=== PATIENT | male | born 1955 | race Caucasian/White ===

== ENCOUNTER 2018-08-30 00:18 | Inpatient (IN) ==
[2018-08-30] MEDS ORDERED: IPRATROPIUM/ALBUTEROL 3 ML AMPUL.NEB NEB ONE ×5 (00:36→02:49)
[2018-08-30] MEDS ORDERED: methylPREDNISolone SOD SUCC 125 MG/2 ML VIAL IV ONE (00:56)
--- NOTE | 2018-08-30 01:01 | Emergency Department Note ---
SOB HPI - General Chief Complaint: Shortness of Breath/Dyspnea Stated Complaint: sob Time Seen by Provider: 08/30/18 00:52 Source: patient Mode of arrival: ambulatory Limitations: no limitations - History of Present Illness Recent complaining of wheezing for the past 2 days he has a history of COPD but has not been using his breathing treatments as he has run out of medications. Patient is a heavy smoker and continues smoking greater than 1 pack of cigarettes a day for more than 40 pack years and has not even attempted to cut back. Temperature is 98.9 the pulse is 110 respiratory rate 24 blood pressure is 181/88 pulse ox is 94% does not have any pain denies chest pain orthopnea - Related Data Home Medications Medication Instructions Recorded Confirmed olmesartan 40 mg tablet 40 mg PO QDAY tab 11/09/14 08/04/18 budesonide-formoterol HFA 160 2 inh INHALATION BID g 11/11/14 08/04/18 mcg-4.5 mcg/actuation aerosol inhaler cholecalciferol (vitamin D3) PO 03/21/17 08/04/18 metformin 500 mg tablet 500 mg PO BID 06/09/18 08/04/18 Previous Rx's Medication Instructions Recorded clobetasol 0.05 % topical ointment 1 applic TOPICAL BID PRN #30 g 10/21/17 folic acid 1 mg tablet See Rx Instructions .ROUTE 08/17/18 .COMPLEX #30 tablet methotrexate sodium 2.5 mg tablet See Rx Instructions .ROUTE 08/17/18 .COMPLEX #40 tablet Allergies Allergy/AdvReac Type Severity Reaction Status Date / Time Penicillins Allergy Severe Anaphylaxis Verified 06/09/18 09:15 (CEFAZOLIN [place]) Review of Systems All systems ED: reviewed and negative except as stated. Respiratory: Reports: as per HPI, shortness of breath, wheezes Past Medical History - Past Medical History PMFSH Narrative: All Active Problems (Last Reviewed 02/02/18 @ 14:53 by Sloane Shrestha CMA) Contusion, chest wall (Acute) Polyarthralgia (Acute) Rash and nonspecific skin eruption (Acute) Hepatitis B core antibody positive (Acute) Rheumatoid nodule (Acute) Encounter for long-term (current) use of other high-risk medications (Acute) History of malignant neoplasm of kidney (Chronic) Status post total knee replacement (Chronic) Cough (Chronic) Osteoarthritis of hip (Chronic) Right shoulder pain (Chronic) Encounter for long-term (current) use of other high-risk medications (Chronic) Rheumatoid arthritis (Acute) Bronchitis (Acute) Status post right knee replacement (Acute) H/O arthroscopic knee surgery (Acute) JASWANT (obstructive sleep apnea) (Chronic) Essential hypertension (Chronic) Cellulitis of arm (Chronic) Olecranon bursitis (Chronic) Erectile dysfunction (Chronic) 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) Smoker (Chronic) Sprain of medial collateral ligament of knee (Chronic) Joint derangement, pelvic region and thigh (Chronic) Shoulder pain, left (Chronic) Left knee pain (Chronic) Osteoarthrosis (Acute) Past Surgical History (Last Reviewed 02/02/18 @ 14:53 by Sloane Shrestha CMA) Status post total knee replacement (Chronic) Status post right knee replacement (Acute) H/O arthroscopic knee surgery (Acute) Family History (Last Reviewed 02/02/18 @ 14:53 by Sloane Shrestha CMA) Unknown Type 2 diabetes mellitus - Social History smoking status: Current every day smoker Physical Exam Limitations: no limitations General appearance: alert Head: atraumatic, normocephalic Eye: Present: normal appearance, PERRL ENT: normal exam, normal oropharynx, mucous membranes moist Neck: Present: normal inspection, full ROM, trachea midline Chest: Present: normal inspection, symmetric chest wall rise. Absent: tenderness Respiratory: Present: wheezes Cardiovascular: Present: regular rate, normal rhythm, tachycardia Abdominal: Present: soft. Absent: distention, tenderness, guarding Extremities: Present: normal inspection, full ROM. Absent: tenderness Back: Present: normal inspection, full ROM. Absent: tenderness Neurological: Present: alert, oriented X3, CN II-XII intact Psychiatric: Present: normal affect, normal mood Course Vital Signs Temperature 98.9 F 08/30/18 00:18 Pulse Rate 110 H 08/30/18 00:18 Respiratory Rate 24 H 08/30/18 00:18 Blood Pressure 181/88 08/30/18 00:18 Pulse Oximetry (%) 94 08/30/18 00:18 Temperature 98.9 F 08/30/18 00:18 Pulse Rate 95 H 08/30/18 03:07 Respiratory Rate 20 08/30/18 03:07 Blood Pressure 148/91 08/30/18 03:01 Pulse Oximetry (%) 95 08/30/18 03:07 Shortness of Breath/Dyspnea - [facility] Narrative Medical decision making narrative: UBC 7100 to hemoglobin 14.6 hematocrit of 44. The venous pH is 7.3 PCO2 venous is 65.8 lactic acid is pending. Patient states his been on BiPAP in the past and does not want to be on any ventilator.His heart rate has come down to 99 at this time his O2 sats are running at 96% respiratory rate 22 before BiPAP. Patient states he is allergic to penicillin but states he has had a cephalosporin in the past he believes , given 1 gm iv. Zithromax 500 mg IV in addition to Rocephin. chest x-ray reveals probable infiltrate behind the heart in the left lower lung chacko. his abg's were repeated pH 7.24 the CO2 is 80 O2 90 lactic acid was 1.4. have repeated another DuoNeb. Patient still says he wants to be on BiPAP and does not want to be on a ventilator.Dr Rock has accepted the patient to pcu. On repeat ABGs CO2 is come down slightly from 80 down to 76 again patient states he wants to be on BiPAP. DNI - Lab Data Result diagrams: 08/30/18 00:50 08/30/18 00:50 Lab Results 08/30/18 08/30/18 08/30/18 Range/Units 00:50 00:50 00:50 WBC 7.1 (4.5-11.0) K/mcL RBC 4.55 (4.50-5.90) M/mcL Hgb 14.6 (13.5-16.5) g/dL Hct 44.3 (41.0-55.0) % MCV 97.3 (80.0-100.0) fL MCH 32.0 (26.0-34.0) pg MCHC 32.9 (31.0-36.0) g/dL RDW 15.1 H (11.5-14.5) % Plt Count 179 (140-440) K/mcL MPV 8.1 (7.4-10.4) fL Gran % 69.3 (38.0-78.0) % Lymph % (Auto) 17.7 (15.5-49.0) % Emmons % (Auto) 7.7 (1.0-12.0) % Eos % (Auto) 4.9 (0.0-7.0) % Baso % (Auto) 0.4 (0.0-2.0) % Gran # 4.9 (1.8-8.0) K/mcL Lymph # (Auto) 1.3 L (1.5-4.8) K/mcL Emmons # (Auto) 0.5 (0.1-0.9) K/mcL Eos # (Auto) 0.4 (0.0-0.7) K/mcL Baso # (Auto) 0 (0.0-0.3) K/mcL ABG Methemoglobin (0.4-1.5) % VBG pH (7.32-7.42) U VBG pCO2 (41.0-51.0) mmHg VBG pO2 (25-40) mmHg VBG HCO3 (24.0-28.0) mmol/L VBG Total CO2 (25.0-29.0) mmol/L VBG O2 Saturation (40.0-70.0) % VBG Base Excess (-2.0-2.0) VBG Lactic Acid (0.5-2.0) mmol/L Carboxyhemoglobin (0.0-1.5) % THgb Total Hemoglobin (13.5-16.5) gm/dL O2 Delivery Level Sodium 136 (133-145) mmol/L Potassium 4.0 (3.3-5.1) mmol/L Chloride 94 L (96-108) mmol/L Carbon Dioxide 27 (22-30) mmol/L Anion Gap 15.0 (8-16) BUN 12 (8-23) mg/dl Creatinine 0.8 (0.7-1.2) mg/dl GFR Calculation 96 Glucose 262 H (70-105) mg/dL Calcium 8.9 (8.6-10.4) mg/dl Total Bilirubin 0.4 (0.0-1.0) mg/dL AST 30 (0-37) U/l ALT 25 (0-40) U/l Alkaline Phosphatase 110 (39-117) U/L NT-Pro-B Natriuret Pep < 50.0 (0-125) pg/ml Total Protein 7.3 (5.9-8.4) gm/dL Albumin 3.6 (3.2-5.2) gm/dL Globulin 3.7 (2.2-3.7) gm/dL Albumin/Globulin Ratio 1.0 (1.0-2.3) Procalcitonin (<0.10) ng/mL 08/30/18 08/30/18 08/30/18 Range/Units 00:50 00:51 01:25 WBC (4.5-11.0) K/mcL RBC (4.50-5.90) M/mcL Hgb (13.5-16.5) g/dL Hct (41.0-55.0) % MCV (80.0-100.0) fL MCH (26.0-34.0) pg MCHC (31.0-36.0) g/dL RDW (11.5-14.5) % Plt Count (140-440) K/mcL MPV (7.4-10.4) fL Gran % (38.0-78.0) % Lymph % (Auto) (15.5-49.0) % Emmons % (Auto) (1.0-12.0) % Eos % (Auto) (0.0-7.0) % Baso % (Auto) (0.0-2.0) % Gran # (1.8-8.0) K/mcL Lymph # (Auto) (1.5-4.8) K/mcL Emmons # (Auto) (0.1-0.9) K/mcL Eos # (Auto) (0.0-0.7) K/mcL Baso # (Auto) (0.0-0.3) K/mcL ABG Methemoglobin 0.3 L (0.4-1.5) % VBG pH 7.30 L (7.32-7.42) U VBG pCO2 65.8 H* (41.0-51.0) mmHg VBG pO2 61 H (25-40) mmHg VBG HCO3 31.4 H (24.0-28.0) mmol/L VBG Total CO2 33.4 H (25.0-29.0) mmol/L VBG O2 Saturation 84.5 H (40.0-70.0) % VBG Base Excess 2.9 H (-2.0-2.0) VBG Lactic Acid 1.6 (0.5-2.0) mmol/L Carboxyhemoglobin 4.0 H (0.0-1.5) % THgb Total Hemoglobin 14.3 (13.5-16.5) gm/dL O2 Delivery Level Not Reportable Sodium (133-145) mmol/L Potassium (3.3-5.1) mmol/L Chloride (96-108) mmol/L Carbon Dioxide (22-30) mmol/L Anion Gap (8-16) BUN (8-23) mg/dl Creatinine (0.7-1.2) mg/dl GFR Calculation Glucose (70-105) mg/dL Calcium (8.6-10.4) mg/dl Total Bilirubin (0.0-1.0) mg/dL AST (0-37) U/l ALT (0-40) U/l Alkaline Phosphatase (39-117) U/L NT-Pro-B Natriuret Pep (0-125) pg/ml Total Protein (5.9-8.4) gm/dL Albumin (3.2-5.2) gm/dL Globulin (2.2-3.7) gm/dL Albumin/Globulin Ratio (1.0-2.3) Procalcitonin < 0.05 (<0.10) ng/mL Disposition Pt seen by ASSOCIATE DATA SCIENTIST/PA only: No Clinical Impression: COPD exacerbation, Pneumonia Disposition: Xfer As Inpt ([facility]) Condition: Serious Referrals: Lela Murry MD [Primary Care Provider] - Time of Disposition: 03:38
[2018-08-30 01:10] LABS: ABG Methemoglobin 0.3 % (0.4-1.5); Total Hemoglobin 14.3 gm/dL (13.5-16.5); VBG Base Excess 2.9 (-2.0-2.0); VBG HCO3 31.4 mmol/L (24.0-28.0); VBG Oxygen Saturation 84.5 % (40.0-70.0); VBG PCO2 65.8 mmHg (41.0-51.0); VBG PO2 61 mmHg (25-40); VBG Total CO2 33.4 mmol/L (25.0-29.0)
[2018-08-30 01:13] LABS: Basophils # (Auto) 0 K/mcL (0.0-0.3); Basophils % (Auto) 0.4 % (0.0-2.0); Eosinophils # (Auto) 0.4 K/mcL (0.0-0.7); Eosinophils % (Auto) 4.9 % (0.0-7.0); Granulocytes % (Auto) 69.3 % (38.0-78.0); Hematocrit 44.3 % (41.0-55.0); Hemoglobin 14.6 g/dL (13.5-16.5); Lymphocytes # (Auto) 1.3 K/mcL (1.5-4.8); Lymphocytes % (Auto) 17.7 % (15.5-49.0); Mean Cell Volume 97.3 fL (80.0-100.0); Mean Corpuscular HGB Conc 32.9 g/dL (31.0-36.0); Mean Platelet Volume 8.1 fL (7.4-10.4); Monocytes # (Auto) 0.5 K/mcL (0.1-0.9); Monocytes % (Auto) 7.7 % (1.0-12.0); Platelet Count 179 K/mcL (140-440); RBC 4.55 M/mcL (4.50-5.90); Red Cell Distribution Width 15.1 % (11.5-14.5); WBC 7.1 K/mcL (4.5-11.0)
[2018-08-30 01:38] LABS: ALT/SGPT 25 U/l (0-40); AST/SGOT 30 U/l (0-37); Albumin 3.6 gm/dL (3.2-5.2); Alkaline Phosphatase 110 U/L (39-117); Bilirubin,Total 0.4 mg/dL (0.0-1.0); Blood Urea Nitrogen 12 mg/dl (8-23); Calcium 8.9 mg/dl (8.6-10.4); Carbon Dioxide 27 mmol/L (22-30); Chloride 94 mmol/L (96-108); Globulin 3.7 gm/dL (2.2-3.7); Glomerular Filtration Rate 96; Glucose 262 mg/dL (70-105); Sodium 136 mmol/L (133-145)
[2018-08-30] MEDS ORDERED: cefTRIAXone 1 GM in DEXTROSE 5% IN WATER 50 ML IV ONE (01:48)
[2018-08-30] MEDS ORDERED: AZITHROMYCIN 500 MG in DEXTROSE 5% IN WATER 250 ML IV ONE (01:49)
[2018-08-30 01:56] LABS: proBNP < 50.0 pg/ml (0-125)
[2018-08-30] MEDS ORDERED: 0.9 % SODIUM CHLORIDE 1,000 ML IV SCH (03:45)
--- NOTE | 2018-08-30 05:50 | XRay Report ---
CLINICAL INFORMATION: sob COMPARISON: 03/28/2016 plain film and chest CT 04/03/2011 FINDINGS: Heart is normal in size and configuration. Moderate enlargement of the central pulmonary arteries suggests pulmonary hypertension. Mediastinum and pulmonary vessels are unremarkable. A moderate vague interstitial infiltrate has developed in the right lower lobe. Lung volumes elevation is compatible with known COPD. No effusions IMPRESSION: 1. Moderate sized vague right lower lobe infiltrate 2. Moderate COPD - also noted on 04/03/[address] Consider repeat chest CT 3. Enlargement of the central pulmonary arteries suggestive of pulmonary hypertension Interpreted and Authenticated by: Abel Mccarty 08/30/18
[2018-08-30] MEDS ORDERED: LORazepam 2 MG/ML VIAL ONE (08:21)
[2018-08-30] MEDS ORDERED: LORazepam 2 MG/ML VIAL IV ONE (08:42)
--- NOTE | 2018-08-30 09:18 | Internal Med History&Physical ---
Medical - H&P: HPI Patient information: Note initiated : 08/30/18 at 9:15 am Service Date, if different from initiated Date: [] Patient: Alexander Payne a 62 y/o M admitted on 08/30/18 for sob. Chief Complaint: [] History of present illness: Mr. Payne is a 62 year old M Presents the ED with shortness of breath. Most history obtained from chart as patient is currently on BiPAP and was recently given Ativan for agitation and thus difficult to gather accurate history even though he does answer my questions albeit slowly and hard to hear through the BiPAP. Patient has had wheezing shortness of breath for past couple days apparently ran out of his breathing treatments so has not been taking those. His continues to smoke couple packs per day. No reported history of orthopnea. Patient denies chest pain. Evaluation in the ED showed a respiratory acidosis diminished breath sounds and patient was placed on BiPAP for COPD. And chest x-ray showed some infiltrate and thus he was started on antibiotics. His procalcitonin was unremarkable. Last night the ED was understood that he wanted to be DO NOT INTUBATE. Patient was continued on BiPAP and has showed slow but gradual improvement throughout the night. Protecting this morning he states he is okay with intubation if needed as well as CPR. Recent became quite agitated pulled off his mask and thus was given Ativan and then calm down the mask was able to be replaced which at that point when I visited with him. Looking old notes he saw Dr. Pelaez and was diagnosed with obstructive sleep apnea and required BiPAP with IPAP BiPAP pressures of 20 and EPAP of minimum of 12. This was late 2016. Review of Systems: Pertinent positives as above. Denies headache/fever/chills/nausea/vomiting/chest or abdominal pain/diarrhea. Remaining 10 point review of system reviewed negative Medical - H&P: PMH Medical history: Medical History (Last Reviewed 02/02/18 @ 14:53 by Sloane Shrestha CMA) Contusion, chest wall (Acute) Polyarthralgia (Acute) Rash and nonspecific skin eruption (Acute) Hepatitis B core antibody positive (Acute) Rheumatoid nodule (Acute) Encounter for long-term (current) use of other high-risk medications (Acute) History of malignant neoplasm of kidney (Chronic) Cough (Chronic) Osteoarthritis of hip (Chronic) Right shoulder pain (Chronic) Encounter for long-term (current) use of other high-risk medications (Chronic) Rheumatoid arthritis (Acute) Bronchitis (Acute) JASWANT (obstructive sleep apnea) (Chronic) Essential hypertension (Chronic) Cellulitis of arm (Chronic) Olecranon bursitis (Chronic) Erectile dysfunction (Chronic) 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 Social History (Last Updated 06/19/18 @ 11:30 by Samuel Casanova MD) Smokes 2 packs cigarettes per day Denies alcohol use Lives by himself Medical - H&P: Meds Home Medications Medication Instructions Recorded Confirmed Type olmesartan 40 mg tablet 40 mg PO QDAY tab 11/09/14 08/04/18 History budesonide-formoterol HFA 160 2 inh INHALATION BID g 11/11/14 08/04/18 History mcg-4.5 mcg/actuation aerosol inhaler cholecalciferol (vitamin D3) PO 03/21/17 08/04/18 History clobetasol 0.05 % topical ointment 1 applic TOPICAL BID PRN #30 g 10/21/17 08/04/18 Rx metformin 500 mg tablet 500 mg PO BID 06/09/18 08/04/18 History folic acid 1 mg tablet See Rx Instructions .ROUTE 08/17/18 Rx .COMPLEX #30 tablet methotrexate sodium 2.5 mg tablet See Rx Instructions .ROUTE 08/17/18 Rx .COMPLEX #40 tablet Allergies Allergy/AdvReac Type Severity Reaction Status Date / Time Penicillins Allergy Severe Anaphylaxis Verified 06/09/18 09:15 (CEFAZOLIN [place]) Medical - H&P: Exam - Constitutional Vitals: Temp Pulse Resp BP Pulse Ox 98.2 F 89 21 136/75 93 08/30/18 04:21 08/30/18 08:02 08/30/18 08:02 08/30/18 08:02 08/30/18 08:02 Exam: General: Drowsy after sedative medication, No acute Distress, obese Eyes/N/T: EOMI, PEERL, Head/Neck: neck supple, normocephalic atraumatic CV: RRR, No murmurs, normal s1/s2 Pulm: Diminished bilaterally, mild wheezing bilateral Abd: soft, nontender, +BS x4 Ext: no clubbing/cyanosis, 2+ b/l LE edema Neuro: drowsy, no focal deficits, moves all extremities, CN 2-12 grossly intact, symmetrical strength b/l upper/lower, sensations intact b/l upper/lower Skin: warm/dry Medical - H&P: Reslt - Labs CBC & Chem 7: 08/30/18 00:50 08/30/18 00:50 Labs: Short CBC 08/30/18 Range/Units 00:50 WBC 7.1 (4.5-11.0) K/mcL Hgb 14.6 (13.5-16.5) g/dL Hct 44.3 (41.0-55.0) % Plt Count 179 (140-440) K/mcL BMP 08/30/18 00:50 Sodium 136 Potassium 4.0 Chloride 94 L Carbon Dioxide 27 BUN 12 Creatinine 0.8 Glucose 262 H Calcium 8.9 Liver Function 08/30/18 Range/Units 00:50 Total Bilirubin 0.4 (0.0-1.0) mg/dL AST 30 (0-37) U/l ALT 25 (0-40) U/l Alkaline Phosphatase 110 (39-117) U/L Albumin 3.6 (3.2-5.2) gm/dL - ABG Interpretation ABG results: 08/30/18 00:51 ABG Methemoglobin 0.3 L VBG pH 7.30 L VBG pCO2 65.8 H* VBG pO2 61 H VBG HCO3 31.4 H VBG Total CO2 33.4 H VBG O2 Saturation 84.5 H VBG Base Excess 2.9 H - Impressions Chest x-ray with COPD changes and a vague infiltrate right lower lobe Medical - H&P: A/P - Narrative A/P Narrative: A: *Acute on chronic hypoxic/hypercapnic respiratory failure: 2/2 AECOPD -requiring Bipap -slowly improving ABG's *AECOPD (does not wear oxygen at home): ran out of breathing treatments at home *JASWANT: supposed to be on BiPAP at home with IPAP 20 and EPAP 12 minimum per a 2017 sleep study note, but not always compliant *Morbid obesity: *DM: *HTN: home ARB *RA & OA: follows with Dr. Casanova *Hypothyroid: *Tobacco abuse * P: -BiPAP support prn during the day and regularly at night -IS/Acapella/Nebs -Steroids (wean) -f/u ABG -Azithro -Resp viral panel - -nicotine patch -SSI, hold metformin for now -cont MTX -Smoking cessation counseling -ppx: lovenox Full code Medical - H&P: Qual - Stroke Symptom Onset Unknown: No - VTE Deep Vein Thrombosis/Pulmonary Embolism Present on Admission: No
[2018-08-30] MEDS ORDERED: MAGNESIUM SULFATE 2 GM/50 ML BAG IV PRN (09:52)
[2018-08-30] MEDS ORDERED: LACTULOSE 20 GM/30 ML ORAL.SOL PO PRN (09:52)
[2018-08-30] MEDS ORDERED: POLYETHYLENE GLYCOL 3350 17 GM PACKET PO PRN (09:52)
[2018-08-30] MEDS ORDERED: ACETAMINOPHEN 325 MG TABLET PO PRN (09:52)
[2018-08-30] MEDS ORDERED: POTASSIUM CHLORIDE 20 MEQ TABLET PO PRN ×2 (09:52)
[2018-08-30] MEDS ORDERED: POTASSIUM CHLORIDE 40 MEQ in DEXTROSE 5% IN WATER 500 ML IV PRN (09:52)
[2018-08-30] MEDS ORDERED: IPRATROPIUM/ALBUTEROL 3 ML AMPUL.NEB NEB PRN (09:52)
[2018-08-30] MEDS ORDERED: LORazepam 2 MG/ML VIAL IV PRN (09:52)
[2018-08-30] MEDS ORDERED: ONDANSETRON 4 MG/2 ML VIAL IV PRN (09:52)
[2018-08-30] MEDS ORDERED: SENNOSIDES 1 TABLET PO PRN (09:52)
[2018-08-30] MEDS ORDERED: PROCHLORPERAZINE 10 MG/2 ML VIAL IV PRN (09:52)
[2018-08-30] MEDS: BUDESONIDE 0.5 MG/2 ML AMPUL.NEB NEB SCH ×2 (10:10→19:07)
[2018-08-30 10:25] LABS: Alcohol, Blood < 10.0 mg/dL (<10); Alcohol,Blood < 0.010 gm/dl (<0.010)
[2018-08-30] MEDS ORDERED: INSULIN LISPRO 1 UNIT/0.01 ML UNIT SQ SCH (11:30)
[2018-08-30] MEDS: ENOXAPARIN 40 MG/0.4 ML SYRINGE SQ SCH ×2 (11:43→21:31)
[2018-08-30] MEDS: NICOTINE 14 MG PATCH TOPICAL SCH (11:44)
[2018-08-30] MEDS: NICOTINE 21 MG PATCH TOPICAL SCH (11:44)
[2018-08-30] MEDS: IPRATROPIUM/ALBUTEROL 3 ML AMPUL.NEB NEB SCH ×2 (13:11→19:07)
[2018-08-30] MEDS: INSULIN LISPRO 1 UNIT/0.01 ML UNIT SQ SCH ×3 (13:39→21:31)
[2018-08-30 14:10] LABS: Appearance,Urine CLEAR; Bilirubin,Urine NEG (NEG); Color,Urine YELLOW; Culture Indicated,Urine NO; Glucose,Urine (UA) NEGATIVE (NEG); Ketones,Urine NEG (NEG); Leukocyte Esterase,Urine NEG /uL (NEG); Nitrate,Urine NEG (NEG); Protein,Urine NEG (NEG); Specific Gravity,Urine 1.016 (1.000-1.035); Urine Blood NEG mg/dL (<0.03); Urobilinogen,Urine NEG (NEG)
[2018-08-30 14:20] LABS: Amphetamine Screen,Urine SUSPECT POSITIVE (NONDETECTED); Barbiturate Screen,Urine NONE DETECTED (NONDETECTED); Benzodiazepines Screen,Urine NONE DETECTED (NONDETECTED); Cannabinoid Screen,Urine NONE DETECTED (NONDETECTED); Cocaine Screen,Urine NONE DETECTED (NONDETECTED); Opiate Screen,Urine SUSPECT POSITIVE (NONDETECTED); Oxycodone, Urine Screen NONE DETECTED (NONDETECTED); Phencyclidine Screen,Urine NONE DETECTED (NONDETECTED)
[2018-08-30] MEDS: 0.9 % SODIUM CHLORIDE 10 ML SYRINGE IV SCH ×2 (14:47→21:32)
[2018-08-30] MEDS: AZITHROMYCIN 500 MG in DEXTROSE 5% IN WATER 250 ML IV SCH (18:01)
[2018-08-30] MEDS: FAMOTIDINE/PF 20 MG/2 ML VIAL IV SCH (21:09)
[2018-08-30] MEDS: DOCUSATE SODIUM 100 MG CAPSULE PO SCH (21:09)
[2018-08-31] MEDS: IPRATROPIUM/ALBUTEROL 3 ML AMPUL.NEB NEB SCH ×4 (01:48→18:58)
[2018-08-31 05:02] LABS: Basophils # (Auto) 0 K/mcL (0.0-0.3); Basophils % (Auto) 0.2 % (0.0-2.0); Eosinophils # (Auto) 0 K/mcL (0.0-0.7); Eosinophils % (Auto) 0.2 % (0.0-7.0); Granulocytes % (Auto) 78.5 % (38.0-78.0); Hematocrit 42.5 % (41.0-55.0); Hemoglobin 13.8 g/dL (13.5-16.5); Lymphocytes % (Auto) 10.2 % (15.5-49.0); Mean Cell Volume 98.3 fL (80.0-100.0); Mean Corpuscular HGB Conc 32.4 g/dL (31.0-36.0); Mean Platelet Volume 8.1 fL (7.4-10.4); Monocytes # (Auto) 1.1 K/mcL (0.1-0.9); Monocytes % (Auto) 10.9 % (1.0-12.0); Platelet Count 189 K/mcL (140-440); RBC 4.32 M/mcL (4.50-5.90); Red Cell Distribution Width 15.8 % (11.5-14.5); WBC 9.9 K/mcL (4.5-11.0)
[2018-08-31] MEDS: 0.9 % SODIUM CHLORIDE 10 ML SYRINGE IV SCH ×4 (05:34→21:15)
[2018-08-31 05:55] LABS: ALT/SGPT 20 U/l (0-40); AST/SGOT 18 U/l (0-37); Albumin 3.2 gm/dL (3.2-5.2); Albumin/Globulin Ratio 0.9 (1.0-2.3); Alkaline Phosphatase 80 U/L (39-117); Bilirubin,Direct < 0.2 mg/dL (0.0-0.3); Bilirubin,Total 0.4 mg/dL (0.0-1.0); Blood Urea Nitrogen 23 mg/dl (8-23); Calcium 9.2 mg/dl (8.6-10.4); Carbon Dioxide 31 mmol/L (22-30); Chloride 99 mmol/L (96-108); Globulin 3.4 gm/dL (2.2-3.7); Glomerular Filtration Rate 91; Glucose 170 mg/dL (70-105); Lactate Dehydrogenase 203 U/L (94-250); Magnesium 2.1 mg/dL (1.6-2.5); Phosphorous 2.6 mg/dL (2.7-4.5); Sodium 140 mmol/L (133-145); Triglycerides 126 mg/dl (<150); Uric Acid 5.9 mg/dL (2.5-8.0)
[2018-08-31] MEDS: BUDESONIDE 0.5 MG/2 ML AMPUL.NEB NEB SCH ×2 (07:13→19:00)
--- NOTE | 2018-08-31 07:45 | Internal Med Progress Note ---
Medical - PN: Subj Patient information: Note initiated : 08/31/18 at 7:41 am Service Date, if different from initiated Date: [] Patient: Alexander Payne a 62 y/o M admitted on 08/30/18 for sob. Chief Complaint: [] Interval history: Mr. Payne is a 62 year old M Presents the ED with shortness of breath. Most history obtained from chart as patient is currently on BiPAP and was recently given Ativan for agitation and thus difficult to gather accurate history even though he does answer my questions albeit slowly and hard to hear through the BiPAP. Patient has had wheezing shortness of breath for past couple days apparently ran out of his breathing treatments so has not been taking those. His continues to smoke couple packs per day. No reported history of orthopnea. Patient denies chest pain. Evaluation in the ED showed a respiratory acidosis diminished breath sounds and patient was placed on BiPAP for COPD. And chest x-ray showed some infiltrate and thus he was started on antibiotics. His procalcitonin was unremarkable. Last night the ED was understood that he wanted to be DO NOT INTUBATE. Patient was continued on BiPAP and has showed slow but gradual improvement throughout the night. Protecting this morning he states he is okay with intubation if needed as well as CPR. Recent became quite agitated pulled off his mask and thus was given Ativan and then calm down the mask was able to be replaced which at that point when I visited with him. Looking old notes he saw Dr. Pelaez and was diagnosed with obstructive sleep apnea and required BiPAP with IPAP BiPAP pressures of 20 and EPAP of minimum of 12. This was late 2016. 08/31 Alert and sitting up in chair. Feeling better but still short of breath, not as severe as presentation. Cough productive of clear sputum. UDS with amphetamines patient denies any use of the drug. States only uses marijuana. Could be false positive for metformin. Review of Systems: Has mild headache. Denies fever/chills/nausea/vomiting/chest or abdominal pain/diarrhea. Otherwise see above. - Constitutional Vitals: Vital Signs Temp Pulse Resp BP Pulse Ox 99.7 F H 91 H 20 122/91 95 08/31/18 04:00 08/31/18 07:31 08/31/18 07:31 08/31/18 07:01 08/31/18 07:32 Period Temp Pulse Resp BP Sys/King Pulse Ox Last 24 Hr 99.2 F-99.7 F 81-108 16-27 114-157/71-117 86-100 Intake and Output 08/30/18 08/31/18 08/31/18 21:59 05:59 13:59 Intake Total 1610 360 Output Total 1050 Balance 1610 -690 Weight 97.976 kg Intake & Output: Intake & Output 08/30/18 08/31/18 08/31/18 21:59 05:59 13:59 Intake Total 1610 360 Output Total 1050 Balance 1610 -690 Weight 97.976 kg Intake: IV 1250 Zithromax 500 mg In Dextrose 5% 250 in Water 250 ml @ 250 mls/hr IV DAILY [facility] Rx#:[id number] Oral 360 360 Output: Void Amount 1050 Other: Meal Dinner Percent of Meal Consumed 100% Exam: General: Alert and awake, No acute Distress, obese Eyes/N/T: EOMI, , Head/Neck: neck supple, CV: RRR, No murmurs, Pulm: Diminished bilaterally but better aeration than yesterday, wheezing bilateral Abd: soft, nontender, +BS x4 Ext: no clubbing/cyanosis, 1-2+ b/l LE edema Neuro: drowsy, no focal deficits, moves all extremities, Skin: warm/dry Medical - PN: Obj Da - Labs CBC & Chem 7: 08/31/18 03:30 08/31/18 03:30 Labs: Abnormal Lab Results 08/31/18 08/31/18 08/30/18 03:30 03:30 13:26 RBC 4.32 L RDW 15.8 H Gran % 78.5 H Lymph % (Auto) 10.2 L Lymph # (Auto) 1.0 L Merrick # (Auto) 1.1 H ABG Methemoglobin VBG pH VBG pCO2 VBG pO2 VBG HCO3 VBG Total CO2 VBG O2 Saturation VBG Base Excess Carboxyhemoglobin Chloride Carbon Dioxide 31 H Glucose 170 H Hemoglobin A1c Phosphorus 2.6 L Albumin/Globulin Ratio 0.9 L Urine Opiates Screen Suspect positive A Ur Amphetamines Screen Suspect positive A 08/30/18 08/30/18 08/30/18 09:15 00:51 00:50 RBC RDW Gran % Lymph % (Auto) Lymph # (Auto) Merrick # (Auto) ABG Methemoglobin 0.3 L VBG pH 7.30 L VBG pCO2 65.8 H* VBG pO2 61 H VBG HCO3 31.4 H VBG Total CO2 33.4 H VBG O2 Saturation 84.5 H VBG Base Excess 2.9 H Carboxyhemoglobin 4.0 H Chloride 94 L Carbon Dioxide Glucose 262 H Hemoglobin A1c 7.0 H Phosphorus Albumin/Globulin Ratio Urine Opiates Screen Ur Amphetamines Screen 08/30/18 00:50 RBC RDW 15.1 H Gran % Lymph % (Auto) Lymph # (Auto) 1.3 L Merrick # (Auto) ABG Methemoglobin VBG pH VBG pCO2 VBG pO2 VBG HCO3 VBG Total CO2 VBG O2 Saturation VBG Base Excess Carboxyhemoglobin Chloride Carbon Dioxide Glucose Hemoglobin A1c Phosphorus Albumin/Globulin Ratio Urine Opiates Screen Ur Amphetamines Screen Meds: Medications Acetaminophen (Tylenol) 650 mg PO Q6HP PRN PRN Reason: PAIN/FEVER > 101 Albuterol/Ipratropium (Duoneb) 3 ml NEB Q6HRT [facility] Last Admin: 08/31/18 07:13 Dose: 3 ml Documented by: Albuterol/Ipratropium (Duoneb) 3 ml NEB Q4HP PRN PRN Reason: Shortness Of Breath Budesonide (Pulmicort) 0.5 mg NEB Q12 [facility] Last Admin: 08/31/18 07:13 Dose: 0.5 mg Documented by: Diagnostic Test (Pha) (Accu-Chek) 1 each FS ACHS [facility] Last Admin: 08/30/18 21:10 Dose: 1 each Documented by: Docusate Sodium (Colace) 100 mg PO BID [facility] Last Admin: 08/30/18 21:09 Dose: 100 mg Documented by: Enoxaparin Sodium (Lovenox) 40 mg SQ BID [facility] Last Admin: 08/30/18 21:31 Dose: 40 mg Documented by: Famotidine (Pepcid) 20 mg IV Q12 [facility] Last Admin: 08/30/18 21:09 Dose: 20 mg Documented by: Azithromycin 500 mg/ Dextrose 250 mls @ 250 mls/hr IV DAILY [facility]; Protocol Stop: 08/31/18 09:59 Last Infusion: 08/30/18 19:01 Dose: Infused Documented by: Potassium Chloride 40 meq/ (Dextrose) 520 mls @ 130 mls/hr IV UD PRN PRN Reason: Potassium < 3 Magnesium Sulfate (Magnesium Sulfate) 2 gm in 50 mls @ 50 mls/hr IV UD PRN PRN Reason: Magnesium </= 1.6 Insulin Human Lispro (Humalog) 0 unit SQ ACHS [facility]; Protocol Last Admin: 08/30/18 21:31 Dose: 8 units Documented by: Lactulose (Cephulac) 10 gm PO DAILYP PRN PRN Reason: Constipation Lorazepam (Ativan) 0.5 mg IV Q4-6HP PRN PRN Reason: ANXIETY/SEDATION Mupirocin (Bactroban Oint 2%) 1 dose NARES BID [facility] Nicotine (Nicoderm) 14 mg TOPICAL DAILY@1000 [facility] Last Admin: 08/30/18 11:44 Dose: 14 mg Documented by: Nicotine (Nicoderm) 21 mg TOPICAL DAILY@1000 [facility] Last Admin: 08/30/18 11:44 Dose: 21 mg Documented by: Ondansetron HCl (Zofran) 4 mg IV Q4HP PRN PRN Reason: Nausea And Vomiting Polyethylene Glycol (Miralax) 17 gm PO DAILYP PRN PRN Reason: Constipation Potassium Chloride (Kdur) 40 meq PO UD PRN PRN Reason: Potssium is 3-3.5 Potassium Chloride (Kdur) 40 meq PO UD PRN PRN Reason: Potassium < 3 Prochlorperazine (Compazine) 10 mg IV Q6HP PRN PRN Reason: Nausea And Vomiting Senna (Senokot) 2 tab PO HSP PRN PRN Reason: Constipation Sodium Chloride (Saline Flush) 10 ml IV Q8 [facility] Last Admin: 08/31/18 05:34 Dose: 10 ml Documented by: - ABG Interpretation ABG results: 08/30/18 00:51 ABG Methemoglobin 0.3 L VBG pH 7.30 L VBG pCO2 65.8 H* VBG pO2 61 H VBG HCO3 31.4 H VBG Total CO2 33.4 H VBG O2 Saturation 84.5 H VBG Base Excess 2.9 H Medical - PN: A/P - Time Spent With Patient Total time spent is greater than 50% in coordination of care (as documented) at patient's floor/unit and/or counseling patient: - Narrative A/P Narrative: A: *Acute on chronic hypoxic/hypercapnic respiratory failure: 2/2 AECOPD 2/2 Parainfluenza -required Bipap initially, improving ABG's -now on NC @3-4L while awake *AECOPD (does not wear oxygen at home): *Parainfluenza: *JASWANT: supposed to be on BiPAP at home with IPAP 20 and EPAP 12 minimum per a 2017 sleep study note, but not always compliant *Morbid obesity: *UDS with amphetamines: pt denies, could be false positive from metformin *DM: *HTN: home ARB *RA & OA: follows with Dr. Casanova *Hypothyroid: *Tobacco abuse * P: -BiPAP support prn during the day -Routine use of Bipap at night -IS/Acapella/Nebs -Steroids (wean) -Azithro -nicotine patch -SSI, hold metformin for now -Smoking cessation counseling -ppx: lovenox Full code Medical - PN: Qual - Stroke Symptom Onset Unknown: No - VTE Deep Vein Thrombosis/Pulmonary Embolism Present on Admission: No
[2018-08-31] MEDS ORDERED: methylPREDNISolone SOD SUCC 125 MG/2 ML VIAL IV ONE (07:49)
[2018-08-31] MEDS: INSULIN LISPRO 1 UNIT/0.01 ML UNIT SQ SCH ×4 (07:53→21:14)
--- NOTE | 2018-08-31 08:17 | XRay Report ---
HISTORY: Follow-up infiltrate in the right lung FINDINGS: The vague infiltrate seen centrally and inferiorly in the right lung on 08/30/18 has resolved. There may be mild interstitial fibrosis in both lung apices. There is no evidence of a mass, congestive heart failure or pleural effusion. The central hilar vessels are smaller today than they were on 616. The aorta is mildly tortuous. The heart is normal in size and contour. IMPRESSION: Resolved infiltrate Interpreted and Authenticated by: Beck Lopez 08/31/18
[2018-08-31] MEDS: AZITHROMYCIN 500 MG in DEXTROSE 5% IN WATER 250 ML IV SCH (08:50)
[2018-08-31] MEDS: MUPIROCIN OINT 2% 22GM NARES SCH ×2 (08:50→21:13)
[2018-08-31] MEDS: FAMOTIDINE/PF 20 MG/2 ML VIAL IV SCH ×2 (08:51→21:14)
[2018-08-31] MEDS: ENOXAPARIN 40 MG/0.4 ML SYRINGE SQ SCH ×2 (08:51→21:14)
[2018-08-31] MEDS: DOCUSATE SODIUM 100 MG CAPSULE PO SCH ×2 (08:51→21:14)
[2018-08-31] MEDS: NICOTINE 21 MG PATCH TOPICAL SCH (09:01)
[2018-08-31] MEDS: NICOTINE 14 MG PATCH TOPICAL SCH (09:01)
[2018-08-31] MEDS: methylPREDNISolone SOD SUCC 40 MG/ML VIAL IV SCH ×2 (15:06→21:13)
[2018-08-31] MEDS: FOLIC ACID 1 MG TABLET PO SCH (15:06)
[2018-09-01] MEDS: IPRATROPIUM/ALBUTEROL 3 ML AMPUL.NEB NEB SCH ×4 (02:06→19:28)
[2018-09-01] MEDS: methylPREDNISolone SOD SUCC 40 MG/ML VIAL IV SCH ×3 (05:43→21:13)
[2018-09-01] MEDS: 0.9 % SODIUM CHLORIDE 10 ML SYRINGE IV SCH ×3 (05:44→21:13)
[2018-09-01 06:00] LABS: Blood Urea Nitrogen 22 mg/dl (8-23); Calcium 9.4 mg/dl (8.6-10.4); Carbon Dioxide 33 mmol/L (22-30); Chloride 97 mmol/L (96-108); Glomerular Filtration Rate 91; Glucose 178 mg/dL (70-105); Potassium 4.6 mmol/L (3.3-5.1); Sodium 140 mmol/L (133-145)
[2018-09-01] MEDS: BUDESONIDE 0.5 MG/2 ML AMPUL.NEB NEB SCH ×2 (07:11→19:28)
--- NOTE | 2018-09-01 07:19 | Internal Med Progress Note ---
Medical - PN: Subj Patient information: Note initiated : 09/01/18 at 7:16 am Service Date, if different from initiated Date: [] Patient: Alexander Payne a 62 y/o M admitted on 08/30/18 for sob. Chief Complaint: [] Interval history: Mr. Payne is a 62 year old M Presents the ED with shortness of breath. Most history obtained from chart as patient is currently on BiPAP and was recently given Ativan for agitation and thus difficult to gather accurate history even though he does answer my questions albeit slowly and hard to hear through the BiPAP. Patient has had wheezing shortness of breath for past couple days apparently ran out of his breathing treatments so has not been taking those. His continues to smoke couple packs per day. No reported history of orthopnea. Patient denies chest pain. Evaluation in the ED showed a respiratory acidosis diminished breath sounds and patient was placed on BiPAP for COPD. And chest x-ray showed some infiltrate and thus he was started on antibiotics. His procalcitonin was unremarkable. Last night the ED was understood that he wanted to be DO NOT INTUBATE. Patient was continued on BiPAP and has showed slow but gradual improvement throughout the night. Protecting this morning he states he is okay with intubation if needed as well as CPR. Recent became quite agitated pulled off his mask and thus was given Ativan and then calm down the mask was able to be replaced which at that point when I visited with him. Looking old notes he saw Dr. Pelaez and was diagnosed with obstructive sleep apnea and required BiPAP with IPAP BiPAP pressures of 20 and EPAP of minimum of 12. This was late 2016. 08/31 Alert and sitting up in chair. Feeling better but still short of breath, not as severe as presentation. Cough productive of clear sputum. UDS with amphetamines patient denies any use of the drug. States only uses marijuana. Could be false positive for metformin. 09/01 Cough of clear sputum. Does have shortness of breath but he says it has improved quite a bit even from yesterday. However he still on 4 L of nasal cannula oxygen. Was more tolerant with physical therapy today. No other complaints. Review of Systems: Denies fever/chills/nausea/vomiting/chest or abdominal pain/diarrhea. Otherwise see above. - Constitutional Vitals: Vital Signs Temp Pulse Resp BP Pulse Ox 98.4 F 98 H 24 H 145/82 91 09/01/18 00:01 09/01/18 05:57 09/01/18 05:57 09/01/18 05:57 09/01/18 05:57 Period Temp Pulse Resp BP Sys/King Pulse Ox Last 24 Hr 97.7 F-98.4 F 89-108 18-24 127-169/75-116 84-95 Intake and Output 08/31/18 09/01/18 09/01/18 21:59 05:59 13:59 Output Total 1000 1800 Balance -1000 -1800 Weight 97.023 kg Intake & Output: Intake & Output 08/31/18 09/01/18 09/01/18 21:59 05:59 13:59 Output Total 1000 1800 Balance -1000 -1800 Weight 97.023 kg Output: Void Amount 1000 1800 Other: Urine Appearance Clear Urine Color Pale Exam: General: Alert and awake, No acute Distress, obese Eyes/N/T: EOMI, Head/Neck: neck supple, CV: RRR, No murmurs, Pulm: Diminished bilaterally but aeration continues to improve, wheezing bilat eral not as severe Abd: soft, nontender, +BS x4 Ext: no clubbing/cyanosis, 1+ b/l LE edema Neuro: drowsy, no focal deficits, moves all extremities, Skin: warm/dry Medical - PN: Obj Da - Labs CBC & Chem 7: 08/31/18 03:30 09/01/18 03:27 Labs: Abnormal Lab Results 09/01/18 08/31/18 08/31/18 03:27 03:30 03:30 RBC 4.32 L RDW 15.8 H Gran % 78.5 H Lymph % (Auto) 10.2 L Lymph # (Auto) 1.0 L Starr # (Auto) 1.1 H ABG Methemoglobin VBG pH VBG pCO2 VBG pO2 VBG HCO3 VBG Total CO2 VBG O2 Saturation VBG Base Excess Carboxyhemoglobin Chloride Carbon Dioxide 33 H 31 H Glucose 178 H 170 H Hemoglobin A1c Phosphorus 2.6 L Albumin/Globulin Ratio 0.9 L Urine Opiates Screen Ur Amphetamines Screen 08/30/18 08/30/18 08/30/18 13:26 09:15 00:51 RBC RDW Gran % Lymph % (Auto) Lymph # (Auto) Starr # (Auto) ABG Methemoglobin 0.3 L VBG pH 7.30 L VBG pCO2 65.8 H* VBG pO2 61 H VBG HCO3 31.4 H VBG Total CO2 33.4 H VBG O2 Saturation 84.5 H VBG Base Excess 2.9 H Carboxyhemoglobin 4.0 H Chloride Carbon Dioxide Glucose Hemoglobin A1c 7.0 H Phosphorus Albumin/Globulin Ratio Urine Opiates Screen Suspect positive A Ur Amphetamines Screen Suspect positive A 08/30/18 08/30/18 00:50 00:50 RBC RDW 15.1 H Gran % Lymph % (Auto) Lymph # (Auto) 1.3 L Starr # (Auto) ABG Methemoglobin VBG pH VBG pCO2 VBG pO2 VBG HCO3 VBG Total CO2 VBG O2 Saturation VBG Base Excess Carboxyhemoglobin Chloride 94 L Carbon Dioxide Glucose 262 H Hemoglobin A1c Phosphorus Albumin/Globulin Ratio Urine Opiates Screen Ur Amphetamines Screen Meds: Medications Acetaminophen (Tylenol) 650 mg PO Q6HP PRN PRN Reason: PAIN/FEVER > 101 Albuterol/Ipratropium (Duoneb) 3 ml NEB Q6HRT [facility] Last Admin: 09/01/18 07:10 Dose: 3 ml Documented by: Albuterol/Ipratropium (Duoneb) 3 ml NEB Q4HP PRN PRN Reason: Shortness Of Breath Budesonide (Pulmicort) 0.5 mg NEB Q12 [facility] Last Admin: 09/01/18 07:11 Dose: 0.5 mg Documented by: Diagnostic Test (Pha) (Accu-Chek) 1 each FS ACHS [facility] Last Admin: 08/31/18 21:13 Dose: 1 each Documented by: Docusate Sodium (Colace) 100 mg PO BID [facility] Last Admin: 08/31/18 21:14 Dose: 100 mg Documented by: Enoxaparin Sodium (Lovenox) 40 mg SQ BID [facility] Last Admin: 08/31/18 21:14 Dose: 40 mg Documented by: Famotidine (Pepcid) 20 mg IV Q12 [facility] Last Admin: 08/31/18 21:14 Dose: 20 mg Documented by: Folic Acid (Folic Acid) 1 mg PO DAILY [facility] Last Admin: 08/31/18 15:06 Dose: 1 mg Documented by: Potassium Chloride 40 meq/ (Dextrose) 520 mls @ 130 mls/hr IV UD PRN PRN Reason: Potassium < 3 Magnesium Sulfate (Magnesium Sulfate) 2 gm in 50 mls @ 50 mls/hr IV UD PRN PRN Reason: Magnesium </= 1.6 Insulin Human Lispro (Humalog) 0 unit SQ ACHS [facility]; Protocol Last Admin: 08/31/18 21:14 Dose: 8 units Documented by: Lactulose (Cephulac) 10 gm PO DAILYP PRN PRN Reason: Constipation Lorazepam (Ativan) 0.5 mg IV Q4-6HP PRN PRN Reason: ANXIETY/SEDATION Losartan Potassium (Cozaar) 100 mg PO DAILY [facility] Methylprednisolone Sodium Succinate (Solu-Medrol) 40 mg IV Q8 [facility] Last Admin: 09/01/18 05:43 Dose: 40 mg Documented by: Mupirocin (Bactroban Oint 2%) 1 dose NARES BID [facility] Last Admin: 08/31/18 21:13 Dose: 1 dose Documented by: Nicotine (Nicoderm) 14 mg TOPICAL DAILY@1000 [facility] Last Admin: 08/31/18 09:01 Dose: 14 mg Documented by: Nicotine (Nicoderm) 21 mg TOPICAL DAILY@1000 [facility] Last Admin: 08/31/18 09:01 Dose: 21 mg Documented by: Ondansetron HCl (Zofran) 4 mg IV Q4HP PRN PRN Reason: Nausea And Vomiting Polyethylene Glycol (Miralax) 17 gm PO DAILYP PRN PRN Reason: Constipation Potassium Chloride (Kdur) 40 meq PO UD PRN PRN Reason: Potssium is 3-3.5 Potassium Chloride (Kdur) 40 meq PO UD PRN PRN Reason: Potassium < 3 Prochlorperazine (Compazine) 10 mg IV Q6HP PRN PRN Reason: Nausea And Vomiting Senna (Senokot) 2 tab PO HSP PRN PRN Reason: Constipation Sodium Chloride (Saline Flush) 10 ml IV Q8 [facility] Last Admin: 09/01/18 05:44 Dose: 10 ml Documented by: - ABG Interpretation ABG results: 08/30/18 00:51 ABG Methemoglobin 0.3 L VBG pH 7.30 L VBG pCO2 65.8 H* VBG pO2 61 H VBG HCO3 31.4 H VBG Total CO2 33.4 H VBG O2 Saturation 84.5 H VBG Base Excess 2.9 H Medical - PN: A/P - Time Spent With Patient Total time spent is greater than 50% in coordination of care (as documented) at patient's floor/unit and/or counseling patient: - Narrative A/P Narrative: A: *Acute on chronic hypoxic/hypercapnic respiratory failure: 2/2 AECOPD 2/2 Parainfluenza -required Bipap initially -now on NC @3-4L while awake *AECOPD (does not wear oxygen at home): *Parainfluenza: *JASWANT: supposed to be on BiPAP at home with IPAP 20 and EPAP 12 minimum per a 2017 sleep study note, but not always compliant *Morbid obesity: *UDS with amphetamines: pt denies, could be false positive from metformin *DM: A1c 7.0 *HTN: home ARB *RA & OA: follows with Dr. Casanova *Hypothyroid: *Tobacco abuse * P: -BiPAP support prn during the day -Routine use of Bipap at night -IS/Acapella/Nebs -Steroids (wean) -Azithro -nicotine patch -SSI, basal insulin, hold metformin for now -Smoking cessation counseling -ppx: lovenox Full code Medical - PN: Qual - Stroke Symptom Onset Unknown: No - VTE Deep Vein Thrombosis/Pulmonary Embolism Present on Admission: No
[2018-09-01] MEDS ORDERED: INSULIN GLARGINE, HUMAN 1 UNIT/0.01 ML SQ SCH (09:00)
[2018-09-01] MEDS ORDERED: LOSARTAN 50 MG TABLET PO SCH (09:00)
[2018-09-01] MEDS: INSULIN LISPRO 1 UNIT/0.01 ML UNIT SQ SCH ×4 (09:10→20:55)
[2018-09-01] MEDS: FAMOTIDINE/PF 20 MG/2 ML VIAL IV SCH ×2 (09:11→20:11)
[2018-09-01] MEDS: DOCUSATE SODIUM 100 MG CAPSULE PO SCH ×2 (09:11→20:12)
[2018-09-01] MEDS: FOLIC ACID 1 MG TABLET PO SCH (09:11)
[2018-09-01] MEDS: MUPIROCIN OINT 2% 22GM NARES SCH ×3 (09:11→22:28)
[2018-09-01] MEDS: NICOTINE 14 MG PATCH TOPICAL SCH ×2 (09:12→09:30)
[2018-09-01] MEDS: NICOTINE 21 MG PATCH TOPICAL SCH ×2 (09:12→09:30)
[2018-09-01] MEDS: ENOXAPARIN 40 MG/0.4 ML SYRINGE SQ SCH ×2 (09:29→20:11)
[2018-09-01] MEDS ORDERED: MAGNESIUM SULFATE 2 GM/50 ML BAG IV PRN (09:31)
[2018-09-01] MEDS ORDERED: LORazepam 2 MG/ML VIAL IV PRN (09:31)
[2018-09-01] MEDS ORDERED: POTASSIUM CHLORIDE 20 MEQ TABLET PO PRN ×2 (09:31)
[2018-09-01] MEDS ORDERED: PROCHLORPERAZINE 10 MG/2 ML VIAL IV PRN (09:31)
[2018-09-01] MEDS ORDERED: POTASSIUM CHLORIDE 40 MEQ in DEXTROSE 5% IN WATER 500 ML IV PRN (09:31)
[2018-09-01] MEDS ORDERED: ONDANSETRON 4 MG/2 ML VIAL IV PRN (09:31)
[2018-09-01] MEDS ORDERED: ACETAMINOPHEN 325 MG TABLET PO PRN (09:31)
[2018-09-01] MEDS ORDERED: SENNOSIDES 1 TABLET PO PRN (09:31)
[2018-09-01] MEDS ORDERED: POLYETHYLENE GLYCOL 3350 17 GM PACKET PO PRN (09:31)
[2018-09-01] MEDS ORDERED: IPRATROPIUM/ALBUTEROL 3 ML AMPUL.NEB NEB PRN (09:31)
[2018-09-01] MEDS ORDERED: LACTULOSE 20 GM/30 ML ORAL.SOL PO PRN (09:31)
[2018-09-02] MEDS: IPRATROPIUM/ALBUTEROL 3 ML AMPUL.NEB NEB SCH ×4 (01:17→20:36)
[2018-09-02] MEDS: 0.9 % SODIUM CHLORIDE 10 ML SYRINGE IV SCH ×3 (05:39→21:22)
[2018-09-02] MEDS: methylPREDNISolone SOD SUCC 40 MG/ML VIAL IV SCH ×3 (05:39→21:18)
[2018-09-02 05:40] LABS: Blood Urea Nitrogen 22 mg/dl (8-23); Calcium 9.7 mg/dl (8.6-10.4); Carbon Dioxide 31 mmol/L (22-30); Chloride 99 mmol/L (96-108); Glomerular Filtration Rate 96; Glucose 174 mg/dL (70-105); Potassium 4.3 mmol/L (3.3-5.1); Sodium 141 mmol/L (133-145)
--- NOTE | 2018-09-02 06:45 | Internal Med Progress Note ---
Medical - PN: Subj Patient information: Note initiated : 09/02/18 at 6:40 am Service Date, if different from initiated Date: [] Patient: Alexander Payne a 62 y/o M admitted on 08/30/18 for sob. Chief Complaint: [] Interval history: Mr. Payne is a 62 year old M Presents the ED with shortness of breath. Most history obtained from chart as patient is currently on BiPAP and was recently given Ativan for agitation and thus difficult to gather accurate history even though he does answer my questions albeit slowly and hard to hear through the BiPAP. Patient has had wheezing shortness of breath for past couple days apparently ran out of his breathing treatments so has not been taking those. His continues to smoke couple packs per day. No reported history of orthopnea. Patient denies chest pain. Evaluation in the ED showed a respiratory acidosis diminished breath sounds and patient was placed on BiPAP for COPD. And chest x-ray showed some infiltrate and thus he was started on antibiotics. His procalcitonin was unremarkable. Last night the ED was understood that he wanted to be DO NOT INTUBATE. Patient was continued on BiPAP and has showed slow but gradual improvement throughout the night. Protecting this morning he states he is okay with intubation if needed as well as CPR. Recent became quite agitated pulled off his mask and thus was given Ativan and then calm down the mask was able to be replaced which at that point when I visited with him. Looking old notes he saw Dr. Pelaez and was diagnosed with obstructive sleep apnea and required BiPAP with IPAP BiPAP pressures of 20 and EPAP of minimum of 12. This was late 2016. 08/31 Alert and sitting up in chair. Feeling better but still short of breath, not as severe as presentation. Cough productive of clear sputum. UDS with amphetamines patient denies any use of the drug. States only uses marijuana. Could be false positive for metformin. 09/01 Cough of clear sputum. Does have shortness of breath but he says it has improved quite a bit even from yesterday. However he still on 4 L of nasal cannula oxygen. Was more tolerant with physical therapy today. No other complaints. 09/02 Productive cough of clear sputum. Still short of breath he feels is improving even from yesterday. Nurse reports he desats when he exerts himself or falls asleep without his mask on. Review of Systems: Denies fever/chills/nausea/vomiting/chest or abdominal pain/diarrhea. Otherwise see above. - Constitutional Vitals: Vital Signs Temp Pulse Resp BP Pulse Ox 98.2 F 90 20 156/107 92 09/02/18 04:00 09/02/18 04:00 09/02/18 04:00 09/02/18 04:00 09/02/18 04:00 Period Temp Pulse Resp BP Sys/King Pulse Ox Last 24 Hr 97.7 F-98.8 F 84-100 16-28 149-171/96-116 85-94 Intake and Output 09/01/18 09/02/18 09/02/18 21:59 05:59 13:59 Intake Total 980 840 Output Total 1900 1800 Balance -920 -960 Weight 139.706 kg Intake & Output: Intake & Output 09/01/18 09/02/18 09/02/18 21:59 05:59 13:59 Intake Total 980 840 Output Total 1900 1800 Balance -920 -960 Weight 139.706 kg Intake: Oral 980 840 Output: Urine Catheter Amount 800 Void Amount 1900 1000 Other: Meal Dinner Percent of Meal Consumed 100% Urine Appearance Clear Clear Urine Color Bright Yellow Bright Yellow Stool Size Copious Stool Color Brown Stool Consistency Formed Exam: General: Alert and awake, No acute Distress, obese Eyes/N/T: EOMI, Head/Neck: neck supple, CV: RRR, No murmurs, Pulm: Diminished bilaterally, wheezing bilateral slowly improving Abd: soft, nontender, +BS x4 Ext: no clubbing/cyanosis, 1+ b/l LE edema Neuro: drowsy, no focal deficits, moves all extremities, Skin: warm/dry Medical - PN: Obj Da - Labs CBC & Chem 7: 08/31/18 03:30 09/02/18 03:18 Labs: Abnormal Lab Results 09/02/18 09/01/18 08/31/18 03:18 03:27 03:30 RBC RDW Gran % Lymph % (Auto) Lymph # (Auto) Vance # (Auto) Carbon Dioxide 31 H 33 H 31 H Glucose 174 H 178 H 170 H Hemoglobin A1c Phosphorus 2.6 L Albumin/Globulin Ratio 0.9 L Urine Opiates Screen Ur Amphetamines Screen 08/31/18 08/30/18 08/30/18 03:30 13:26 09:15 RBC 4.32 L RDW 15.8 H Gran % 78.5 H Lymph % (Auto) 10.2 L Lymph # (Auto) 1.0 L Vance # (Auto) 1.1 H Carbon Dioxide Glucose Hemoglobin A1c 7.0 H Phosphorus Albumin/Globulin Ratio Urine Opiates Screen Suspect positive A Ur Amphetamines Screen Suspect positive A Meds: Medications Acetaminophen (Tylenol) 650 mg PO Q6HP PRN PRN Reason: PAIN/FEVER > 101 Albuterol/Ipratropium (Duoneb) 3 ml NEB Q4HP PRN PRN Reason: Shortness Of Breath Albuterol/Ipratropium (Duoneb) 3 ml NEB Q6HRT [facility] Last Admin: 09/02/18 01:17 Dose: 3 ml Documented by: Budesonide (Pulmicort) 0.5 mg NEB Q12 [facility] Last Admin: 09/01/18 19:28 Dose: 0.5 mg Documented by: Diagnostic Test (Pha) (Accu-Chek) [address] [facility] Last Admin: 09/01/18 20:54 Dose: 1 each Documented by: Docusate Sodium (Colace) 100 mg PO BID [facility] Last Admin: 09/01/18 20:12 Dose: Not Given Documented by: Enoxaparin Sodium (Lovenox) 40 mg SQ BID [facility] Last Admin: 09/01/18 20:11 Dose: 40 mg Documented by: Famotidine (Pepcid) 20 mg IV Q12 [facility] Last Admin: 09/01/18 20:11 Dose: 20 mg Documented by: Folic Acid (Folic Acid) 1 mg PO DAILY [facility] Potassium Chloride 40 meq/ (Dextrose) 520 mls @ 130 mls/hr IV UD PRN PRN Reason: Potassium < 3 Magnesium Sulfate (Magnesium Sulfate) 2 gm in 50 mls @ 50 mls/hr IV UD PRN PRN Reason: Magnesium </= 1.6 Insulin Glargine (Lantus) 10 unit SQ DAILY [facility] Insulin Human Lispro (Humalog) 0 unit SQ ACHS [facility]; Protocol Last Admin: 09/01/18 20:55 Dose: 6 units Documented by: Lactulose (Cephulac) 10 gm PO DAILYP PRN PRN Reason: Constipation Lorazepam (Ativan) 0.5 mg IV Q4-6HP PRN PRN Reason: ANXIETY/SEDATION Losartan Potassium (Cozaar) 100 mg PO DAILY [facility] Methylprednisolone Sodium Succinate (Solu-Medrol) 40 mg IV Q8 [facility] Last Admin: 09/02/18 05:39 Dose: 40 mg Documented by: Mupirocin (Bactroban Oint 2%) 1 dose NARES BID [facility] Last Admin: 09/01/18 22:28 Dose: 1 dose Documented by: Nicotine (Nicoderm) 14 mg TOPICAL DAILY@1000 [facility] Last Admin: 09/01/18 09:30 Dose: 14 mg Documented by: Nicotine (Nicoderm) 21 mg TOPICAL DAILY@1000 [facility] Last Admin: 09/01/18 09:30 Dose: 21 mg Documented by: Ondansetron HCl (Zofran) 4 mg IV Q4HP PRN PRN Reason: Nausea And Vomiting Polyethylene Glycol (Miralax) 17 gm PO DAILYP PRN PRN Reason: Constipation Potassium Chloride (Kdur) 40 meq PO UD PRN PRN Reason: Potssium is 3-3.5 Potassium Chloride (Kdur) 40 meq PO UD PRN PRN Reason: Potassium < 3 Prochlorperazine (Compazine) 10 mg IV Q6HP PRN PRN Reason: Nausea And Vomiting Senna (Senokot) 2 tab PO HSP PRN PRN Reason: Constipation Sodium Chloride (Saline Flush) 10 ml IV Q8 [facility] Last Admin: 09/02/18 05:39 Dose: 10 ml Documented by: - ABG Interpretation ABG results: 08/30/18 00:51 ABG Methemoglobin 0.3 L VBG pH 7.30 L VBG pCO2 65.8 H* VBG pO2 61 H VBG HCO3 31.4 H VBG Total CO2 33.4 H VBG O2 Saturation 84.5 H VBG Base Excess 2.9 H Medical - PN: A/P - Time Spent With Patient Total time spent is greater than 50% in coordination of care (as documented) at patient's floor/unit and/or counseling patient: - Narrative A/P Narrative: A: *Acute on chronic hypoxic/hypercapnic respiratory failure: 2/2 AECOPD 2/2 Parainfluenza -required Bipap initially -now on NC @3NC @rest and while awake, desats if falls asleep w/o mask or exercise *AECOPD (not on home O2): *Parainfluenza: *JASWANT: supposed to be on BiPAP at home with IPAP 20 and EPAP 12 minimum per a 2017 sleep study note, but not always compliant *Morbid obesity: *UDS with amphetamines: pt denies, could be false positive from metformin *DM: A1c 7.0 *HTN: home ARB *RA & OA: follows with Dr. Casanova *Hypothyroid: *Tobacco abuse * P: -BiPAP support prn during the day -Routine use of Bipap at night -IS/Acapella/Nebs -Steroids (wean) -Azithro -nicotine patch -SSI, basal insulin, hold metformin for now -Smoking cessation counseling -ppx: lovenox Full code Medical - PN: Qual - Stroke Symptom Onset Unknown: No - VTE Deep Vein Thrombosis/Pulmonary Embolism Present on Admission: No
[2018-09-02] MEDS: BUDESONIDE 0.5 MG/2 ML AMPUL.NEB NEB SCH ×2 (07:29→20:36)
[2018-09-02] MEDS: NICOTINE 14 MG PATCH TOPICAL SCH (09:15)
[2018-09-02] MEDS: NICOTINE 21 MG PATCH TOPICAL SCH (09:15)
[2018-09-02] MEDS: ENOXAPARIN 40 MG/0.4 ML SYRINGE SQ SCH ×2 (09:16→21:21)
[2018-09-02] MEDS: INSULIN LISPRO 1 UNIT/0.01 ML UNIT SQ SCH ×4 (09:16→21:19)
[2018-09-02] MEDS: INSULIN GLARGINE, HUMAN 1 UNIT/0.01 ML SQ SCH (09:16)
[2018-09-02] MEDS: FOLIC ACID 1 MG TABLET PO SCH (09:17)
[2018-09-02] MEDS: DOCUSATE SODIUM 100 MG CAPSULE PO SCH ×2 (09:17→21:20)
[2018-09-02] MEDS: LOSARTAN 50 MG TABLET PO SCH (09:17)
[2018-09-02] MEDS: FAMOTIDINE/PF 20 MG/2 ML VIAL IV SCH ×2 (09:17→21:19)
[2018-09-02] MEDS: MUPIROCIN OINT 2% 22GM NARES SCH ×2 (09:18→21:21)
[2018-09-03] MEDS: IPRATROPIUM/ALBUTEROL 3 ML AMPUL.NEB NEB SCH ×2 (00:28→07:19)
[2018-09-03 04:23] LABS: Opiate Confirmation POSITIVE (N)
[2018-09-03] MEDS: methylPREDNISolone SOD SUCC 40 MG/ML VIAL IV SCH (05:16)
[2018-09-03] MEDS: 0.9 % SODIUM CHLORIDE 10 ML SYRINGE IV SCH (05:16)
[2018-09-03] MEDS: BUDESONIDE 0.5 MG/2 ML AMPUL.NEB NEB SCH (07:19)
[2018-09-03] MEDS: INSULIN GLARGINE, HUMAN 1 UNIT/0.01 ML SQ SCH (08:07)
[2018-09-03] MEDS: INSULIN LISPRO 1 UNIT/0.01 ML UNIT SQ SCH ×2 (08:07→12:10)
[2018-09-03] MEDS: LOSARTAN 50 MG TABLET PO SCH (08:07)
[2018-09-03] MEDS: FOLIC ACID 1 MG TABLET PO SCH (08:08)
[2018-09-03] MEDS: DOCUSATE SODIUM 100 MG CAPSULE PO SCH ×2 (08:08→08:14)
[2018-09-03] MEDS: FAMOTIDINE/PF 20 MG/2 ML VIAL IV SCH (08:09)
[2018-09-03] MEDS: ENOXAPARIN 40 MG/0.4 ML SYRINGE SQ SCH (08:14)
[2018-09-03] MEDS: MUPIROCIN OINT 2% 22GM NARES SCH (08:22)
[2018-09-03 09:20] LABS: Basophils # (Auto) 0 K/mcL (0.0-0.3); Basophils % (Auto) 0 % (0.0-2.0); Eosinophils # (Auto) 0 K/mcL (0.0-0.7); Eosinophils % (Auto) 0.1 % (0.0-7.0); Granulocytes % (Auto) 84.1 % (38.0-78.0); Hematocrit 43.6 % (41.0-55.0); Hemoglobin 14.5 g/dL (13.5-16.5); Lymphocytes # (Auto) 1.4 K/mcL (1.5-4.8); Lymphocytes % (Auto) 9.8 % (15.5-49.0); Mean Cell Volume 98.8 fL (80.0-100.0); Mean Corpuscular HGB Conc 33.3 g/dL (31.0-36.0); Mean Platelet Volume 7.9 fL (7.4-10.4); Monocytes # (Auto) 0.9 K/mcL (0.1-0.9); Platelet Count 263 K/mcL (140-440); RBC 4.41 M/mcL (4.50-5.90); Red Cell Distribution Width 15.3 % (11.5-14.5); WBC 14.3 K/mcL (4.5-11.0)
[2018-09-03 09:35] LABS: ALT/SGPT 27 U/l (0-40); AST/SGOT 23 U/l (0-37); Albumin 3.8 gm/dL (3.2-5.2); Albumin/Globulin Ratio 1.2 (1.0-2.3); Alkaline Phosphatase 75 U/L (39-117); Bilirubin,Direct < 0.2 mg/dL (0.0-0.3); Bilirubin,Total 0.6 mg/dL (0.0-1.0); Blood Urea Nitrogen 22 mg/dl (8-23); Calcium 9.6 mg/dl (8.6-10.4); Carbon Dioxide 31 mmol/L (22-30); Chloride 99 mmol/L (96-108); Globulin 3.3 gm/dL (2.2-3.7); Glomerular Filtration Rate 91; Glucose 160 mg/dL (70-105); Lactate Dehydrogenase 246 U/L (94-250); Magnesium 2.2 mg/dL (1.6-2.5); Phosphorous 4.4 mg/dL (2.7-4.5); Potassium 4.5 mmol/L (3.3-5.1); Sodium 140 mmol/L (133-145); Triglycerides 163 mg/dl (<150); Uric Acid 5.9 mg/dL (2.5-8.0)
--- NOTE | 2018-09-03 10:46 | Internal Med Progress Note ---
Medical - PN: Subj Patient information: Note initiated : 09/03/18 at 10:44 am Service Date, if different from initiated Date: [] Patient: Alexander Payne a 62 y/o M admitted on 08/30/18 for sob. Chief Complaint: [] Interval history: Mr. Payne is a 62 year old M Presents the ED with shortness of breath. Most history obtained from chart as patient is currently on BiPAP and was recently given Ativan for agitation and thus difficult to gather accurate history even though he does answer my questions albeit slowly and hard to hear through the BiPAP. Patient has had wheezing shortness of breath for past couple days apparently ran out of his breathing treatments so has not been taking those. His continues to smoke couple packs per day. No reported history of orthopnea. Patient denies chest pain. Evaluation in the ED showed a respiratory acidosis diminished breath sounds and patient was placed on BiPAP for COPD. And chest x-ray showed some infiltrate and thus he was started on antibiotics. His procalcitonin was unremarkable. Last night the ED was understood that he wanted to be DO NOT INTUBATE. Patient was continued on BiPAP and has showed slow but gradual improvement throughout the night. Protecting this morning he states he is okay with intubation if needed as well as CPR. Recent became quite agitated pulled off his mask and thus was given Ativan and then calm down the mask was able to be replaced which at that point when I visited with him. Looking old notes he saw Dr. Pelaez and was diagnosed with obstructive sleep apnea and required BiPAP with IPAP BiPAP pressures of 20 and EPAP of minimum of 12. This was late 2016. 08/31 Alert and sitting up in chair. Feeling better but still short of breath, not as severe as presentation. Cough productive of clear sputum. UDS with amphetamines patient denies any use of the drug. States only uses marijuana. Could be false positive for metformin. 09/01 Cough of clear sputum. Does have shortness of breath but he says it has improved quite a bit even from yesterday. However he still on 4 L of nasal cannula oxygen. Was more tolerant with physical therapy today. No other complaints. 09/02 Productive cough of clear sputum. Still short of breath he feels is improving even from yesterday. Nurse reports he desats when he exerts himself or falls asleep without his mask on. 09/03 Pt seen examined, no acute issues, tolerating po diet well feels breathing is better no wheeze on exam today he wishes to be discharged today, notes that will not stay, even if advised to stay back, Does not have oxygen at home, will set up home oxygen Oxygen saturation on room air is 86%, osat on 4L is 91% - Constitutional Vitals: Vital Signs Temp Pulse Resp BP Pulse Ox 98.7 F 104 H 18 160/98 90 09/02/18 23:08 09/03/18 08:00 09/03/18 07:22 09/03/18 08:00 09/03/18 08:00 Period Temp Pulse Resp BP Sys/King Pulse Ox Last 24 Hr 97.2 F-98.7 F 86-104 18-25 128-170/71-108 88-95 Intake and Output 09/02/18 09/03/18 09/03/18 21:59 05:59 13:59 Intake Total 420 Output Total 550 1875 1050 Balance -130 -1875 -1050 Weight 304 lb 8 oz Intake & Output: Intake & Output 09/02/18 09/03/18 09/03/18 21:59 05:59 13:59 Intake Total 420 Output Total 550 1875 1050 Balance -130 -1875 -1050 Weight 304 lb 8 oz Intake: Oral 420 Output: Void Amount 550 1875 1050 Other: Meal Dinner Breakfast Percent of Meal Consumed 100% 100% Feeding Ability Assist with Tray Set Up Independent Urine Appearance Clear Clear Clear Urine Color Bright Yellow Pale Pale Urine Odor Normal Stool Size Large Stool Color Brown Stool Consistency Formed # Voids 1 # Bowel Movements 1 Medical - PN: Obj Da - Labs CBC & Chem 7: 09/03/18 08:07 09/03/18 08:07 Labs: Abnormal Lab Results 09/03/18 09/03/18 09/02/18 08:07 08:07 03:18 WBC 14.3 H RBC 4.41 L RDW 15.3 H Gran % 84.1 H Lymph % (Auto) 9.8 L Gran # 12.0 H Lymph # (Auto) 1.4 L Carbon Dioxide 31 H 31 H Glucose 160 H 174 H Triglycerides 163 H 09/01/18 03:27 WBC RBC RDW Gran % Lymph % (Auto) Gran # Lymph # (Auto) Carbon Dioxide 33 H Glucose 178 H Triglycerides Meds: Medications Acetaminophen (Tylenol) 650 mg PO Q6HP PRN PRN Reason: PAIN/FEVER > 101 Albuterol/Ipratropium (Duoneb) 3 ml NEB Q4HP PRN PRN Reason: Shortness Of Breath Albuterol/Ipratropium (Duoneb) 3 ml NEB Q6HRT [facility] Last Admin: 09/03/18 07:19 Dose: 3 ml Documented by: Budesonide (Pulmicort) 0.5 mg NEB Q12 [facility] Last Admin: 09/03/18 07:19 Dose: 0.5 mg Documented by: Diagnostic Test (Pha) (Accu-Chek) 1 each FS ACHS [facility] Last Admin: 09/03/18 08:06 Dose: 1 each Documented by: Docusate Sodium (Colace) 100 mg PO BID [facility] Last Admin: 09/03/18 08:14 Dose: Not Given Documented by: Enoxaparin Sodium (Lovenox) 40 mg SQ BID [facility] Last Admin: 09/03/18 08:14 Dose: 40 mg Documented by: Famotidine (Pepcid) 20 mg IV Q12 [facility] Last Admin: 09/03/18 08:09 Dose: 20 mg Documented by: Folic Acid (Folic Acid) 1 mg PO DAILY [facility] Last Admin: 09/03/18 08:08 Dose: 1 mg Documented by: Potassium Chloride 40 meq/ (Dextrose) 520 mls @ 130 mls/hr IV UD PRN PRN Reason: Potassium < 3 Magnesium Sulfate (Magnesium Sulfate) 2 gm in 50 mls @ 50 mls/hr IV UD PRN PRN Reason: Magnesium </= 1.6 Insulin Glargine (Lantus) 10 unit SQ DAILY [facility] Last Admin: 09/03/18 08:07 Dose: 10 unit Documented by: Insulin Human Lispro (Humalog) 0 unit SQ ACHS [facility]; Protocol Last Admin: 09/03/18 08:07 Dose: 4 units Documented by: Lactulose (Cephulac) 10 gm PO DAILYP PRN PRN Reason: Constipation Lorazepam (Ativan) 0.5 mg IV Q4-6HP PRN PRN Reason: ANXIETY/SEDATION Losartan Potassium (Cozaar) 100 mg PO DAILY [facility] Last Admin: 09/03/18 08:07 Dose: 100 mg Documented by: Methylprednisolone Sodium Succinate (Solu-Medrol) 40 mg IV Q8 [facility] Last Admin: 09/03/18 05:16 Dose: 40 mg Documented by: Mupirocin (Bactroban Oint 2%) 1 dose NARES BID [facility] Last Admin: 09/03/18 08:22 Dose: 1 dose Documented by: Nicotine (Nicoderm) 14 mg TOPICAL DAILY@1000 [facility] Last Admin: 09/02/18 09:15 Dose: 14 mg Documented by: Nicotine (Nicoderm) 21 mg TOPICAL DAILY@1000 [facility] Last Admin: 09/02/18 09:15 Dose: 21 mg Documented by: Ondansetron HCl (Zofran) 4 mg IV Q4HP PRN PRN Reason: Nausea And Vomiting Polyethylene Glycol (Miralax) 17 gm PO DAILYP PRN PRN Reason: Constipation Potassium Chloride (Kdur) 40 meq PO UD PRN PRN Reason: Potssium is 3-3.5 Potassium Chloride (Kdur) 40 meq PO UD PRN PRN Reason: Potassium < 3 Prochlorperazine (Compazine) 10 mg IV Q6HP PRN PRN Reason: Nausea And Vomiting Senna (Senokot) 2 tab PO HSP PRN PRN Reason: Constipation Sodium Chloride (Saline Flush) 10 ml IV Q8 [facility] Last Admin: 09/03/18 05:16 Dose: 10 ml Documented by: - ABG Interpretation ABG results: 08/30/18 00:51 ABG Methemoglobin 0.3 L VBG pH 7.30 L VBG pCO2 65.8 H* VBG pO2 61 H VBG HCO3 31.4 H VBG Total CO2 33.4 H VBG O2 Saturation 84.5 H VBG Base Excess 2.9 H Medical - PN: A/P - Time Spent With Patient Total time spent is greater than 50% in coordination of care (as documented) at patient's floor/unit and/or counseling patient: Medical - PN: Qual - Stroke Symptom Onset Unknown: No - VTE Deep Vein Thrombosis/Pulmonary Embolism Present on Admission: No
--- NOTE | 2018-09-03 10:51 | Discharge Summary ---
Medical - DS: Prov Patient information: Note initiated : 09/03/18 at 10:46 am Service Date, if different from initiated Date: [] Patient: Alexander Payne 62 y/o M admitted on 08/30/18 for sob. Chief Complaint: [] Date of admission: 08/30/18 04:03 Discharge date: 09/03/18 Primary care physician: Lela Murry Consults: 08/30/18 Consult to Physician [CONS] Stat Comment: pcu Consulting Provider: Leo Rock Reason For Exam: Physician to Consult Discharging clinician: Jaylen Potter Medical - DS: Meds - Discharge Medications Prescriptions: Azithromycin [Zithromax] 250 mg PO DAILY #1 tab predniSONE [Prednisone] 5 mg PO [facility] #23 tab Active and Home Medications: Home Medications budesonide-formoterol HFA 160 mcg-4.5 mcg/actuation aerosol inhaler 2 inh INHALATION BID g 11/11/14 [History Confirmed 08/31/18 Last Taken 08/29/18] folic acid 1 mg tablet See Rx Instructions .ROUTE .COMPLEX #30 tablet 08/17/18 [Rx Confirmed 08/31/18 Last Taken 08/29/18] methotrexate sodium 2.5 mg tablet See Rx Instructions .ROUTE .COMPLEX #40 tablet 08/17/18 [Rx Confirmed 08/31/18 Last Taken 08/23/18] Albuterol Sulfate 3 ml NEB TID 08/30/18 [History Confirmed 08/31/18 Last Taken 08/29/18] Irbesartan [Avapro] 1 tab PO DAILY 08/30/18 [History Confirmed 08/31/18 Last Taken 08/29/18] metFORMIN [Glucophage] 500 mg PO [facility] 08/30/18 [History Confirmed 08/31/18 Last Taken 08/29/18] Azithromycin [Zithromax] 250 mg PO DAILY 08/31/18 [History Confirmed 08/31/18 Last Taken 08/29/18] Mv-Mn/Folic Acid/Lutein/Yac042 [Mens Multivit High Potency Tab] 1 tab PO DAILY 08/31/18 [History Confirmed 08/31/18 Last Taken Unknown] Nystatin 100,000 Unit/Gm 1 applic TOPICAL BID 08/31/18 [History Confirmed 08/31/18 Last Taken Unknown] inFLIXimab [Remicade] 500 mg IV ONCE 08/31/18 [History Confirmed 08/31/18 Last Taken 08/04/18] Medical - DS: Hosp Hospital course: Mr. Payne is a 62 year old M Presents the ED with shortness of breath. Most history obtained from chart as patient is currently on BiPAP and was recently given Ativan for agitation and thus difficult to gather accurate history even though he does answer my questions albeit slowly and hard to hear through the BiPAP. Patient has had wheezing shortness of breath for past couple days apparently ran out of his breathing treatments so has not been taking those. His continues to smoke couple packs per day. No reported history of orthopnea. Patient denies chest pain. Evaluation in the ED showed a respiratory acidosis diminished breath sounds and patient was placed on BiPAP for COPD. And chest x-ray showed some infiltrate and thus he was started on antibiotics. His procalcitonin was unremarkable. Last night the ED was understood that he wanted to be DO NOT INTUBATE. Patient was continued on BiPAP and has showed slow but gradual improvement throughout the night. Protecting this morning he states he is okay with intubation if needed as well as CPR. Recent became quite agitated pulled off his mask and thus was given Ativan and then calm down the mask was able to be replaced which at that point when I v isited with him. Looking old notes he saw Dr. Pelaez and was diagnosed with obstructive sleep apnea and required BiPAP with IPAP BiPAP pressures of 20 and EPAP of minimum of 12. This was late 2016. 08/31 Alert and sitting up in chair. Feeling better but still short of breath, not as severe as presentation. Cough productive of clear sputum. UDS with amphetamines patient denies any use of the drug. States only uses marijuana. Could be false positive for metformin. 09/01 Cough of clear sputum. Does have shortness of breath but he says it has improved quite a bit even from yesterday. However he still on 4 L of nasal cannula oxygen. Was more tolerant with physical therapy today. No other complaints. 09/02 Productive cough of clear sputum. Still short of breath he feels is improving even from yesterday. Nurse reports he desats when he exerts himself or falls asleep without his mask on. 09/03 Pt seen examined, no acute issues, tolerating po diet well feels breathing is better no wheeze on exam today he wishes to be discharged today, notes that will not stay, even if advised to stay back, Does not have oxygen at home, will set up home oxygen Oxygen saturation on room air is 86%, osat on 4L is 91% will discharge on a prednisone taper, he will continue his nebulizer treatments at home, continue CPAP at home Advised to follow-up with PCP in 1 week No changes made to his chronic home medication list Discharge diagnosis: COPD exacerbation - Time Spent with Patient Total time spent providing and/or coordinating discharge services: Greater than 30 minutes Medical - DS: Exam - Constitutional Vitals: Vital Signs Temp Pulse Pulse Resp BP BP Pulse Ox 09/03/18 08:00 104 H 160/98 90 09/03/18 07:22 88 18 91 09/03/18 03:30 95 H 20 88 L 09/02/18 23:08 98.7 F 86 20 146/96 91 09/02/18 20:00 166/78 09/02/18 19:30 98 H 25 H 93 09/02/18 19:25 98.3 F 98 H 20 170/108 93 09/02/18 15:15 97.2 F 95 H 25 H 158/96 89 L 09/02/18 13:25 98 H 22 95 09/02/18 13:00 98.4 F 101 H 22 128/71 95 Intake and Output 09/02/18 09/03/18 09/03/18 21:59 05:59 13:59 Intake Total 420 Output Total 550 1875 1050 Balance -130 -1875 -1050 Intake: Oral 420 Output: Void Amount 550 1875 1050 Other: Meal Dinner Breakfast Percent of Meal Consumed 100% 100% Feeding Ability Assist with Tray Set Up Independent Urine Appearance Clear Clear Clear Urine Color Bright Yellow Pale Pale Urine Odor Normal Stool Size Large Stool Color Brown Stool Consistency Formed # Voids 1 # Bowel Movements 1 Weight 304 lb 8 oz Additional comments: Constitutional; Afebrile, cooperative, alert, not in distress. Respiratory system: Air Entry equal on both sides, No crackles or wheezing, no rhonchi. CVS- Rate rhythm regular, S1,S2 heard, no gallop, no rub. Abdomen- Soft nontender abdomen, no organomegaly, no tenderness, no guarding or rigidity, TELEPHONE COLLECTOR- AOOx3, moving all extremities, no gross focal deficit noted. Medical - DS: Data Labs on day of discharge: Labs from last 24 hours 09/03/18 09/03/18 08/30/18 08:07 08:07 13:26 WBC 14.3 H RBC 4.41 L Hgb 14.5 Hct 43.6 MCV 98.8 MCH 32.9 MCHC 33.3 RDW 15.3 H Plt Count 263 MPV 7.9 Gran % 84.1 H Lymph % (Auto) 9.8 L [place] % (Auto) 6.0 Eos % (Auto) 0.1 Baso % (Auto) 0 Gran # 12.0 H Lymph # (Auto) 1.4 L [place] # (Auto) 0.9 Eos # (Auto) 0 Baso # (Auto) 0 Sodium 140 Potassium 4.5 Chloride 99 Carbon Dioxide 31 H Anion Gap 10.0 BUN 22 Creatinine 0.9 GFR Calculation 91 Glucose 160 H Uric Acid 5.9 Calcium 9.6 Phosphorus 4.4 Magnesium 2.2 Total Bilirubin 0.6 Direct Bilirubin < 0.2 GGT 27 AST 23 ALT 27 Alkaline Phosphatase 75 Lactate Dehydrogenase 246 Total Protein 7.1 Albumin 3.8 Globulin 3.3 Albumin/Globulin Ratio 1.2 Triglycerides 163 H Ur Opiates Confirm Positive U Amphetamines Confirm Positive Preliminary micro results at discharge 08/30/18 01:25 Blood Culture - Preliminary Blood 08/30/18 01:35 Blood Culture - Preliminary Blood Medical - DS: A/P - Patient/Caregiver Discharge Instructions Activity: increase activity as tolerated Diet: Regular Diet Additional Instructions: Yaya Fowler Patient Navigator Support person; CLIFFORD Montgomery; Please call if you need help or have any questions Take prednisone as prescribed, 4 pills of 5 mg strength for 3 days, then 2 pills for 3 days then 1 pill for 3 days then half a pill for 3 days then stop. Take this medication with food Take your nebulizer treatments every 6 hours Follow-up with your primary care provider within 1 week Go to the emergency room if worsening shortness of breath chest pain fever or any other acute concern - Follow up Plan Follow up with: Lela Murry MD [Primary Care Provider] - Disposition: Home, Self-Care Prognosis: Fair Rehab Potential: Fair I certify that the patient requires SNF services: No Overall status at discharge: patient is progressing back to baseline Medical - DS: Qual - VTE Deep Vein Thrombosis/Pulmonary Embolism Present on Admission: No
[2018-09-03] MEDS: NICOTINE 14 MG PATCH TOPICAL SCH (10:54)
[2018-09-03] MEDS: NICOTINE 21 MG PATCH TOPICAL SCH (10:54)
--- NOTE | 2018-09-03 20:17 | Antibiotic Stewardship Consult ---
Antibiotic Stewardship Consult Reason for consult: Penicillin allergy Allergy History: Allergies Allergy/AdvReac Type Severity Reaction Status Date / Time Penicillins Allergy Severe Anaphylaxis Verified 06/09/18 09:15 (CEFAZOLIN OK) Microbiology History: Microbiology 08/30/18 01:25 Blood Culture - Preliminary Blood 08/30/18 01:35 Blood Culture - Preliminary Blood 08/30/18 09:09 Respiratory Virus Panel (PCR) - Final Nasopharynx 08/30/18 09:09 Respiratory Panel (PCR) - Final Nasopharynx 08/30/18 04:20 MRSA (PCR) - Final Nose MRSA PCR positive Narrative: Spoke with patient about his Hx of penicillin allergy. Pt reports that he had Hx of throat swelling with amoxicillin about 40 years ago. The reaction was managed with medicines given by his clinic doctor. Pt doesnot remember being intubated. Pt has not taken penicillin since then. I shared facts about penicillin allergy, allergy testing at [facility]. Shared [facility] flyer about penicillin allergy testing. Pt will contact ID clinic after discharge.
== END 2018-09-03 12:54 | disposition home or self-care (01) | DRG 190 ==
LOC: ED 00:18 → ICU 04:03 → MEDSUR 09-02 15:53
PROVIDERS: ADMIT Internal Medicine; ATTEND Internal Medicine